=== PATIENT | female | born 1960 | race Caucasian/White ===

== ENCOUNTER → 2018-05-19 09:13 | Outpatient (CLI) | payer MEDICARE, MEDICAID, SELFPAY ==
--- NOTE | 2018-05-19 09:23 | XR_ITS ---
XR lumbar spine 6V w bending Ordering Physician: Steff Moses MD Patient Age: 57 years: Female HISTORY: ITS.REASON: pain TECHNIQUE: Five-view lumbar spine series.-additional flexion and extension view lateral spine HISTORY Low back pain. Tingling both legs. COMPARISON :None FINDINGS The vertebral bodies are intact throughout the lumbar spine. No compression fractures evident. The disc spaces are fairly well maintained with only slight narrowing posteriorly at L4/5 disc in noted. Early marginal osteophytes throughout the spine. The flexion-extension views show no unusual subluxation or laxity. The bones well mineralized AP view shows a subtle levocurvature at mid L-spine L3. Anterior marginal osteophytes are seen throughout the spine. IMPRESSION: Lumbar spine intact with only some minor degenerative changes. Borderline narrowing at posterior aspect of L4/5 disc. . Early marginal osteophytes. Mild minor levocurvature L-spine on AP view
[2018-05-19 10:28] LABS: Basophils % 0.5 % (0.1-2.0); Eosinophils # 0.2 K/mm3 (0.0-0.4); Eosinophils % 2.9 % (0.1-12.0); Hematocrit 44.4 % (37.0-47.0); Hemoglobin 14.5 g/dL (12.2-16.2); Lymphocytes # 1.5 K/mm3 (0.7-4.5); Lymphocytes % 25.5 K/mm3 (10-50); Mean Corpuscular HGB Conc 32.6 g/dL (31.8-35.4); Mean Corpuscular Hemoglobin 32.1 pg (27.0-31.2); Mean Corpuscular Volume 98.5 fl (81-99); Mean Platelet Volume 7.8 fl (7.4-10.4); Monocytes # 0.4 K/mm3 (0.1-1.0); Monocytes % 6.1 % (1.7-9.3); Neutrophils # 3.7 K/mm3 (1.8-7.8); Platelet Count 261 K/mm3 (142-424); Red Blood Count 4.51 M/mm3 (4.20-5.40); Red Cell Distribution Width 14.2 % (11.5-17.5); White Blood Count 5.7 K/mm3 (4.8-10.8)
[2018-05-19 11:53] LABS: Alanine Aminotransferase 57 U/L (12-78); Albumin Level 3.8 gm/dL (3.4-5.0); Albumin/Globulin Ratio 1.1 (1.1-1.8); Alkaline Phosphatase 122 U/L (46-116); Anion Gap 13.6 mEq/L (5-15); Aspartate Amino Transferase 40 U/L (15-37); Bilirubin,Total 0.6 mg/dL (0.2-1.0); Blood Urea Nitrogen 13 mg/dL (7-18); Calcium 9.3 mg/dL (8.5-10.1); Carbon Dioxide 28 mmol/L (21.0-32.0); Chloride 106 mmol/L (98-107); Creatinine,Serum 0.84 mg/dL (0.55-1.02); Estimated Glomerular Filt Rate 70 ml/min (>60); GFR (African American) 85 ML/MIN (>60); Globulin 3.4 gm/dl (1.3-3.2); Glucose 106 mg/dL (74-106); Potassium 4.6 mmoL/L (3.5-5.1); Sodium 143 mmol/L (136-145); Thyroid Stimulating Hormone 2.94 uIU/ml (0.358-3.740); Total Protein,Serum 7.2 gm/dL (6.4-8.2)
[2018-05-20 16:36] LABS: Albumin 3.6 g/dL (2.9-4.4); Alpha-1-Globulin 0.2 g/dL (0.0-0.4); Gamma Globulin 1.1 g/dL (0.4-1.8); Protein, Total 7.2 g/dL (6.0-8.5)
[2018-05-21 06:17] LABS: Folate 13.7 ng/mL (>3.0); Vitamin B12 419 pg/mL (232-1245)
== END ==
PROVIDERS: PCP Family Medicine; Visit Provider Specialist
DX: M79.606 Pain in leg, unspecified (principal); R60.0 Localized edema; E53.8 Deficiency of other specified B group vitamins; G62.9 Polyneuropathy, unspecified; R00.2 Palpitations
CPT/HCPCS: 36415; 72114; 80053; 82607; 82746; 84155; 84165; 84443; 85025

== ENCOUNTER → 2018-07-14 15:03 | Outpatient (POV) | payer MEDICARE, MEDICAID, SELFPAY | PROVIDERS: PCP Family Medicine; Visit Provider Specialist | DX: R20.2 Paresthesia of skin (principal); G62.9 Polyneuropathy, unspecified; E53.8 Deficiency of other specified B group vitamins; R60.0 Localized edema; M79.606 Pain in leg, unspecified; M79.604 Pain in right leg; M79.605 Pain in left leg | CPT/HCPCS: 95886; 95909 ==